=== PATIENT | female | born 1990 | race Caucasian/White ===

== ENCOUNTER 2016-09-21 19:07 | Emergency (ER) | payer OTHER ==
[2016-09-21 19:38] VITALS: BMI 26.9
[2016-09-21 20:12] LABS: RBC URINE 1 /hpf (0-3); TRANSITIONAL EPITHIAL < 1 /hpf (0-3); URINE BACTERIA RARE (<OCC); URINE BILIRUBIN NEGATIVE (NEGATIVE); URINE BLOOD NEGATIVE (NEGATIVE); URINE COLOR Yellow (YELLOW); URINE GLUCOSE (UA) NORMAL (Normal); URINE KETONE NEGATIVE (NEGATIVE); URINE LEUKOCYTE ESTERASE TRACE Leu/uL (Negative); URINE PROTEIN NEGATIVE (NEGATIVE); URINE UROBILINOGEN NORMAL mg/dL (0.2-1.0); WBC URINE 6 /hpf (0-5)
[2016-09-21] MEDS ORDERED: Lactated Ringer's 1,000 ML IV ONE (20:19)
--- NOTE | 2016-09-21 20:45 | OBHP ---
Datetime: 09/21/2016 20:36 IP Adm Impression: , intrauterine ; No Active Labor IP Chief Complaint Other: P1 at 25 weeks Gestation complains of lower abdominal discomfort since 100 0 today. Denies LOF or vaginal bleeding. No urinary symptoms. Describes discomfort as lower abdominal pain about every hour. 1 Full term vaginal delivery. No urinary symptoms. Pain lasts a few seconds, no radiation. PMH: None PSH: None Allergy: NKDA ROS: Negative IP Admit Plan: Observation/Evaluation Admit Comment, IP Provider: Urinalysis: Negative. Not in Labor. Hydrate and observe. Pelvic Type - PN: Adequate Extremities - PN: Normal Abdomen - PN: Normal Back - PN: Normal Breast - PN: Not Done Lungs - PN: Normal Heart - PN: Normal Thyroid - PN: Not Done Neurologic - PN: Not Done HEENT - PN: Not Done General - PN: Normal FHR - Baseline A Provider: 150 Membranes, Provider: Intact Contraction Comments Provider: irregular Gestation - Est Wks by US: 25.0 EGA AdmitDate IP: 25.3 Vital Signs Provider: Reviewed; Within Normal Limits IP Chief Complaint: Maternal discomfort NICHD Variability Prov Fetus A: Moderate 6-25bpm FHR Category Provider Fetus A: Category I NICHD Decel Fetus A IP Provider: None Dilatation, Provider: 0 Effacement, Provider: 0 Station, Provider: -3 Genitourinary Exam: Normal DTRs - PN: Not Done
== END 2016-09-21 21:05 | disposition home or self-care (01) ==
LOC: C.EROB 19:07
DX: O26.892 Other specified pregnancy related conditions, second trimester (principal); R10.30 Lower abdominal pain, unspecified; Z3A.25 25 weeks gestation of pregnancy

== ENCOUNTER 2018-10-20 12:52 | Emergency (ER) | payer MEDICAID, OTHER ==
[2018-10-20 12:52] VITALS: BMI 26.9
[2018-10-20 13:21] VITALS: O2SAT 100
--- NOTE | 2018-10-20 13:59 | C.PDOC ---
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 Patient reportedly slipped to the floor from seated position, striking the back of her head. Classmate at bedside witnessed the incident and denies seizure activity, though states the patients eyelids fluttered. There was no tongue bite or incontinence of bowel or bladder. On arrival patient appears awake and alert, forcing her eyes closed and then blinking rapidly. + Multiple prior episodes in the past, for which patient has been evaluated [place] [facility] and here, most recently in May when she had a normal work-up and patient deferred psychiatric evaluation. Upon husbands arrival, patient returns to baseline behavior, answering questions appropriately. Patient complains of a mild headache near the occiput. She admits to feeling sad and stressed at home. Patient reports having occasional occipital headaches and left knee pain, for which she takes Motrin. Admits she is caring for 2 toddlers alone for 15 hours per day. No family support. Time Seen by Provider: 10/20/18 13:09 Chief Complaint (Nursing): Syncope History Per: Patient History/Exam Limitations: no limitations Onset/Duration Of Symptoms: Mins Current Symptoms Are (Timing): Gone Activity At Onset Of Symptoms: Sitting Seizure Or Post-ictal Symptoms: None Fall Associated With With Symptoms: No Injury As Result Of Fall Past Medical History Reviewed: Historical Data, Nursing Documentation, Vital Signs Vital Signs: Last Vital Signs Temp Pulse 92 H 10/20/18 12:57 Resp 20 10/20/18 12:57 BP 134/87 10/20/18 12:57 Pulse Ox 100 10/20/18 12:57 Family History: States: No Known Family Hx - Social History Hx Alcohol Use: No Hx Substance Use: No - Immunization History Hx Tetanus Toxoid Vaccination: No Hx Influenza Vaccination: No Hx Pneumococcal Vaccination: No Review Of Systems Except As Marked, All Systems Reviewed And Found Negative. Constitutional: Negative for: Fever, Chills Cardiovascular: Negative for: Chest Pain, Palpitations Respiratory: Negative for: Shortness of Breath Gastrointestinal: Negative for: Nausea, Vomiting Musculoskeletal: Negative for: Neck Pain, Back Pain Skin: Negative for: Lesions, Bruising Neurological: Positive for: Headache. Negative for: Weakness, Numbness, Seizures, Dizziness Physical Exam - Physical Exam Appears: Non-toxic, No Acute Distress Skin: Warm, Dry, No Rash Head: Atraumatic, Normacephalic, No Swelling (and no signs of contusion), No Abrasion Eye(s): bilateral: Normal Inspection, PERRL, EOMI Nose: No Deformity, No Tenderness, Other (Moderate nasal passage erythema) Oral Mucosa: Moist Neck: Normal ROM Chest: Symmetrical Cardiovascular: Rhythm Regular, No Murmur Respiratory: Normal Breath Sounds, No Accessory Muscle Use Gastrointestinal/Abdominal: Soft, No Tenderness, No Distention Extremity: Bilateral: Atraumatic, Normal Color And Temperature Pulses: Left Dorsalis Pedis: Normal, Right Dorsalis Pedis: Normal Neurological/Psych: Normal Cranial Nerves, Other (Upon 's arrival pt is AAOx3, with clear speech, no focal deficits) ED Course And Treatment ECG: Interpreted By Me, Viewed By Me ECG Rhythm: Sinus Rhythm ECG Interpretation: No Acute Changes Rate From EC O2 Sat by Pulse Oximetry: 100 (RA) Pulse Ox Interpretation: Normal Medical Decision Making Medical Decision Making: Impression: anxiety/panic/syncope Consider Conversion Disorder/Anxiety multiple prior evals for same w neg w/u's Same [place] [facility] [place] Extensive discussion with , patient, and friend at bedside, offering the patient labs and imaging with possible admission. After discussion, patient chooses to leave and is refusing to have any testing. Patient with steady gait at discharge. 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 [Outside] [facility] [Outside] Disposition: HOME/ ROUTINE Disposition Time: 14:14 Condition: GOOD Additional Instructions: Headaches: Probably Sinus/Allergy headaches Flonase spray - nasal steroid 1 spray to each nostril every 12 hours Motrin/Advil 400-600 mg every 6 hours as needed. Headache meds which say "Sinus" will have a nasal passage anti-inflammatory, ie: "Motrin Sinus" L knee pain Motrin as above Weight loss Anxiety/Depression: outpatient follow-up with Psychiatry Call the [facility] or [facility] for support, counseling and consider medications Instructions: Syncope (Fainting), Anxiety, Adult (DC) Forms: [facility] (Pakistani) - Clinical Impression Clinical Impression: Syncope, Anxiety - Scribe Statement The provider has reviewed the documentation as recorded by the Lamar Mckinney Provider Attestation: All medical record entries made by the Lamar were at my direction and personally dictated by me. I have reviewed the chart and agree that the record accurately reflects my personal performance of the history, physical exam, medical decision making, and the department course for this patient. I have also personally directed, reviewed, and agree with the discharge instructions and disposition.
[2018-10-20 14:21] VITALS: BP 108/77; PULSE 67; RESP 18
--- NOTE | 2018-10-22 14:06 | CARD ---
APPROVED REPORT Date of service: 10/20/2018 EKG Measurement Heart [id number] <Conclusion> Normal sinus rhythm Normal ECG
== END 2018-10-20 14:30 | disposition home or self-care (01) ==
LOC: C.ER 12:52
DX: R55 Syncope and collapse (principal); F41.9 Anxiety disorder, unspecified